=== PATIENT | female | born 1955 | race Asian ===

== ENCOUNTER 2017-02-21 07:26 | Day surgery (SDC) | payer BC ==
[2017-02-13 15:25] VITALS: BMI 25.2
[2017-02-21] MEDS ORDERED: PROPOFOL 20 ML ONE ×2 (07:29)
[2017-02-21] MEDS ORDERED: LIDOCAINE HCL/PF 2% SDV 5ML VIAL ONE (07:47)
[2017-02-21 08:57] VITALS: TEMP 97.6
[2017-02-21 09:24] VITALS: BP 109/71; PULSE 74
== END 2017-02-21 09:45 | disposition home or self-care (01) ==
LOC: FASU-ENDO 07:26
PROVIDERS: ATTEND Internal Medicine Gastroenterology
PROC: 0DJD8ZZ Inspection of Lower Intestinal Tract, Via Natural or Artificial Opening Endoscopic (ICD-10-PCS; principal; 2017-02-21 08:23)
DX: Z86.010 Personal history of colon polyps (principal)

== ENCOUNTER 2017-07-31 02:15 | Emergency (ER) | payer BC ==
[2017-07-31 02:25] VITALS: BP 113/56; PULSE 63; BMI 26.4
[2017-07-31] MEDS ORDERED: SODIUM CHLORIDE 1,000 ML IV STA (02:27)
[2017-07-31] MEDS ORDERED: ONDANSETRON 4 MG/2 ML VIAL IVPB ONE (02:27)
--- NOTE | 2017-07-31 02:33 | PDOC ---
History of Present Illness - General Chief Complaint: Nausea/Vomiting Stated Complaint: VOMITED X 3, NAUSEA Time Seen by Provider: 07/31/17 02:17 - History of Present Illness Initial Comments: 07/31/17 02:30 61 F with h/o HTN presenting to ER with N+V. Pt states that about 4 hours prior to arrival to ER, she started feeling extremely nauseous. Pt reports vomiting x 3, nonbloody. Pt also endorses having a large bowel movement but denies any diarrhea. Pt denies F/C. Denies CP/SOB. She states that since she arrived to the ED, she feels significantly better. Denies any abdominal pain. Denies dysuria. Past History - Past Medical History Allergies/Adverse Reactions: Allergies Allergy/AdvReac Type Severity Reaction Status Date / Time aspirin Allergy BLEEDING Verified 07/31/17 02:18 latex Allergy Rash Verified 07/31/17 02:18 Penicillins Allergy Hives Verified 07/31/17 02:18 Home Medications: Ambulatory Orders Lisinopril 10 mg PO HS 02/13/17 Multivitamin [One Daily] 1 each PO DAILY 02/13/17 Anemia: Yes Asthma: No Cancer: No Cardiac Disorders: No CVA: No COPD: No CHF: No Dementia: No Diabetes: No GI Disorders: No Disorders: No HTN: Yes Hypercholesterolemia: Yes (BOARDERLINE STATED BY PT) Liver Disease: No Seizures: No Thyroid Disease: No - Surgical History Abdominal Surgery: No Appendectomy: No Cardiac Surgery: No Cholecystectomy: No Lung Surgery: No Neurologic Surgery: No Orthopedic Surgery: No - Suicide/Smoking/Psychosocial Hx Smoking History: Never smoked Have you smoked in the past 12 months: No Information on smoking cessation initiated: No Hx Alcohol Use: No Drug/Substance Use Hx: No Substance Use Type: None Hx Substance Use Treatment: No Review of Systems - Review of Systems Comments:: 07/31/17 02:31 "GENERAL/CONSTITUTIONAL: No fever or chills. No weakness. HEAD, EYES, EARS, NOSE AND THROAT: No change in vision. No ear pain or discharge. No sore throat. CARDIOVASCULAR: No chest pain or shortness of breath. RESPIRATORY: No cough, wheezing, or hemoptysis. GASTROINTESTINAL: + nausea, vomiting, no diarrhea or constipation. GENITOURINARY: No dysuria, frequency, or change in urination. MUSCULOSKELETAL: No joint or muscle swelling or pain. No neck or back pain. SKIN: No rash NEUROLOGIC: No headache, vertigo, loss of consciousness, or change in strength/ sensation. ENDOCRINE: No increased thirst. No abnormal weight change. HEMATOLOGIC/LYMPHATIC: No anemia, easy bleeding, or history of blood clots. ALLERGIC/IMMUNOLOGIC: No hives or skin allergy. " *Physical Exam - Vital Signs Last Vital Signs Temp Pulse Resp BP Pulse Ox 63 16 113/56 100 07/31/17 02:20 07/31/17 02:20 07/31/17 02:20 07/31/17 02:20 - Physical Exam Comments: 07/31/17 02:32 "GENERAL: Awake, alert, and fully oriented, in no acute distress HEAD: No signs of trauma EYES: PERRLA, EOMI, sclera anicteric, conjunctiva clear ENT: Auricles normal inspection, hearing grossly normal, nares patent, oropharynx clear without exudates. Moist mucosa NECK: Nontender, no stepoffs, Normal ROM, supple, no lymphadenopathy, JVD, or masses LUNGS: Breath sounds equal, clear to auscultation bilaterally. No wheezes, and no crackles HEART: Regular rate and rhythm, normal S1 and S2, no murmurs, rubs or gallops ABDOMEN: Soft, nontender, normoactive bowel sounds. No guarding, no rebound. No masses EXTREMITIES: Normal range of motion, no edema. No clubbing or cyanosis. No cords, erythema, or tenderness NEUROLOGICAL: Cranial nerves II through XII intact. 5/5 strength and sensation in all extremities, Normal speech, normal gait SKIN: Warm, Dry, normal turgor, no rashes or lesions noted. " Heart Score/ECG Review - History History: Slightly suspicious - Electrocardiogram EKG: Non specific repolarization disturbance - Age Age: 45-65 - Risk Factors Risk Factors Heart Score: Yes Hx Hypertension Based on the list above the patient has:: 1-2 risk factors - Troponin Troponin: </= normal limit - Score Heart Score - Total: 3 - ECG Impressions Comment:: 07/31/17 03:33 NSR, no KIM/STDs, TWI in V1-V2, axis wnl, NE 206, rate 73 ED Treatment Course - LABORATORY CBC & Chemistry Diagram: 07/31/17 02:30 07/31/17 02:30 Medical Decision Making - Medical Decision Making 07/31/17 02:32 62 F with N+V. Likely gastroenteritis. Pt with benign abdomen at this time, making acute intraabdominal pathology less likely. Also consider anginal equivalent. - Labs, trop - EKG - IVF, zofran - Reassess 07/31/17 03:48 Labs wnl. Trop negative. EKG nonischemic. Pt reassessed s/p IVF and zofran, now feels much better. Pt tolerating PO. Abdomen continues to be benign. Trop negative x1 - given onset of symptoms 4 hours prior to arrival, repeat trop not necessary. Pt well appearing with normal vitals, clinically stable for DC. I discussed the physical exam findings, ancillary test results and final diagnoses with the patient. I answered all of the patient's questions. The patient was satisfied with the care received and felt comfortable with the discharge plan and treatment plan. The patient agrees to follow up with the primary care physician within 24-72 hours. *DC/Admit/Observation/Transfer Diagnosis at time of Disposition: Gastroenteritis - Discharge Dispostion Disposition: HOME Condition at time of disposition: Stable - Referrals Referrals: Juan Antonio Valenzuela MD [Primary Care Provider] - - Patient Instructions Printed Discharge Instructions: DI for Viral Gastroenteritis -- Adult Additional Instructions: Drink plenty of fluids to stay hydrated. Call your primary care doctor tomorrow to arrange a follow up appointment within 1 week. If you experience any further nausea, vomiting, chest pain, shortness of breath , or any other concerning symptoms, return to the ER immediately. - Post Discharge Activity - Attestations Physician Attestion: 07/31/17 03:50 I, Dr. John Milligan MD, attest that this document has been prepared under my direction and personally reviewed by me in its entirety. I further attest, that it accurately reflects all work, treatment, procedures and medical decision -making performed by me.
[2017-07-31] MEDS ORDERED: ONDANSETRON 4 MG/2 ML VIAL ONE (02:36)
[2017-07-31 02:42] VITALS: TEMP 97.3
[2017-07-31 02:57] LABS: BASO % 0.8 % (0-2.0); EOS % 6.6 % (0-4.5); HEMATOCRIT 36.4 % (32.4-45.2); HEMOGLOBIN 12.2 GM/dL (10.7-15.3); LYMPH % 26.8 % (8-40); MCH 31.9 pg (25.7-33.7); MCHC 33.4 g/dl (32.0-36.0); MEAN CELL VOLUME 95.3 fl (80-96); MEAN PLT VOLUME 7.8 fl (7.5-11.1); MONO % 5.4 % (3.8-10.2); NEUT % 60.4 % (42.8-82.8); PLATELET COUNT 244 K/MM3 (134-434); RBC 3.82 M/mm3 (3.60-5.2); RDW 13.1 % (11.6-15.6); WHITE BLOOD COUNT 6.8 K/mm3 (4.0-10.0)
[2017-07-31 03:38] LABS: ALBUMIN 4.1 g/dl (3.4-5.0); ANION GAP 7 (8-16); BILIRUBIN,TOTAL 0.3 mg/dL (0.2-1.0); BLOOD UREA NITROGEN 14 mg/dL (7-18); CALCIUM 8.6 mg/dL (8.5-10.1); CHLORIDE 106 mmol/L (98-107); CO2 29 mmol/L (21-32); CREATININE 0.7 mg/dL (0.55-1.02); GLUCOSE,RANDOM 118 mg/dL (74-106); LIPASE 130 U/L (73-393); POTASSIUM 3.6 mmol/L (3.5-5.1); SGOT/AST 15 U/L (15-37); SGPT/ALT 26 U/L (12-78); SODIUM 142 mmol/L (136-145)
[2017-07-31 03:39] LABS: ALK PHOS 59 U/L (45-117)
--- NOTE | 2017-08-01 10:53 | EKG ---
Test Reason : Blood Pressure : / mmHG Vent. Rate : 073 BPM Atrial Rate : 073 BPM P-R Int : 206 ms QRS Dur : 070 ms QT Int : 424 ms P-R-T Axes : 033 026 048 degrees QTc Int : 467 ms NORMAL SINUS RHYTHM NORMAL ECG NO PREVIOUS ECGS AVAILABLE Confirmed by DORIE LAIRD MD ([id number]) on 08/01/2017 10:53:03 AM Referred By: MD GOLD Confirmed By:DORIE LAIRD MD
== END 2017-07-31 03:55 | disposition home or self-care (01) ==
LOC: FER 02:15
PROC: 3E033GC Introduction of Other Therapeutic Substance into Peripheral Vein, Percutaneous Approach (ICD-10-PCS; principal; 2017-07-31)
PROC: 3E0337Z Introduction of Electrolytic and Water Balance Substance into Peripheral Vein, Percutaneous Approach (ICD-10-PCS; 2017-07-31)
DX: K52.9 Noninfective gastroenteritis and colitis, unspecified (principal); I10 Essential (primary) hypertension
CPT/HCPCS: 36415; 80053; 82550; 83690; 84484; 85025; 93005; 99281-25

== ENCOUNTER 2018-12-27 08:45 | Emergency (ER) | payer BC ==
[2018-12-27 09:01] VITALS: BP 133/79; PULSE 59; TEMP 97.6; BMI 26.1
--- NOTE | 2018-12-27 09:10 | PDOC ---
History of Present Illness - General Chief Complaint: Nausea/Vomiting Stated Complaint: FEELS BETTER, VOMITED Time Seen by Provider: 12/27/18 08:55 - History of Present Illness Initial Comments: 12/27/18 09:22 Chief complaint: Dizziness and nausea History of present illness: Patient awoke this morning, and upon arising felt "dizziness" accompanied by nausea. There were several episodes of retching with vomiting of a small amount of watery fluid. No abdominal pain or diarrhea. Normal bowel movement yesterday. The "dizziness" is not described as a spinning sensation, but it is made worse with head movement and change of position Review of systems: Denies fevers/chills, URI symptoms, sore throat, cough, chest pain, shortness of breath, abdominal pain, hematemesis, melena, bloody stool, urinary symptoms such as dysuria, frequency, urgency, hesitancy, or hematuria, vaginal bleeding or discharge, visual or focal neurologic symptoms, unsteadiness of gait. Past medical history: Mild hypertension controlled on diuretic. section 3, only surgeries. "Borderline" diabetes on no therapy, with A1c in the high-fives. Similar illness approximately one year ago, evaluated with workup in emergency room which was negative. Complete resolution with time. 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 No tobacco alcohol or nonprescription drugs. No anxiety or depression Family history: Father with a stroke in his 70s, sister with breast cancer. Physical exam: Alert and oriented well-developed well-nourished no acute distress cooperative Afebrile, vital signs normal No pallor or icterus. PERRLA 4 mm, fundi benign with sharp disc margins and good central venous pulsations, no hemorrhages or exudates, no AV nicking. ENT clear Neck supple without bruit mass or nodes Chest clear to P&A. Breasts sounds bilaterally CV S1-S2 normal without murmur rub or gallop pulses full and symmetric no JVD or edema no bruits 60 and regular Abdomen nondistended. Bowel sounds normal. Soft without masses tenderness organomegaly Skin clear, no rash, adequate turgor and mucous membranes Extremities no CCE Neurological C2 to 12 intact. Strength full and symmetric. No focal sensory or motor deficits. Gait stable and unimpaired. Cerebellar function intact. There is reproduction of dizziness with head movement, and with sitting up from a lying position. There is no nystagmus. Impression: This is most likely an acute viral syndrome, with labyrinthine irritation, and vertigo/nausea. No sign of TIA or CVA. But this is still a remote possibility. Also possible but unlikely as an acute coronary syndrome Plan: EKG and enzymes, CBC, chemistries, symptomatic treatment, observation and further evaluation. Past History - Past Medical History Allergies/Adverse Reactions: Allergies Allergy/AdvReac Type Severity Reaction Status Date / Time aspirin Allergy BLEEDING Verified 12/27/18 08:46 latex Allergy Rash Verified 12/27/18 08:46 Penicillins Allergy Hives Verified 12/27/18 08:46 Home Medications: Ambulatory Orders Losartan Potassium 25 mg PO DAILY 12/27/18 Meclizine HCl [Antivert -] 25 mg PO TID PRN #15 tablet 12/27/18 Ondansetron [Zofran Odt -] 4 mg SL TID PRN #15 od.tablet 12/27/18 Anemia: Yes Asthma: No Cancer: No Cardiac Disorders: No CVA: No COPD: No CHF: No Dementia: No Diabetes: No GI Disorders: No Disorders: No HTN: Yes Hypercholesterolemia: Yes (BOARDERLINE STATED BY PT) Liver Disease: No Seizures: No Thyroid Disease: No - Surgical History Abdominal Surgery: No Appendectomy: No Cardiac Surgery: No Cholecystectomy: No Lung Surgery: No Neurologic Surgery: No Orthopedic Surgery: No - Suicide/Smoking/Psychosocial Hx Smoking History: Never smoked Have you smoked in the past 12 months: No Information on smoking cessation initiated: No Hx Alcohol Use: No Drug/Substance Use Hx: No Substance Use Type: None Hx Substance Use Treatment: No *Physical Exam - Vital Signs Last Vital Signs Temp Pulse Resp BP Pulse Ox 97.6 F 59 L 20 133/79 100 12/27/18 08:46 12/27/18 08:46 12/27/18 08:46 12/27/18 08:46 12/27/18 08:46 ED Treatment Course - LABORATORY CBC & Chemistry Diagram: 12/27/18 09:28 12/27/18 09:28 Medical Decision Making - Medical Decision Making 12/27/18 10:35 Patient is much improved with the administration of Zofran and meclizine. Dizziness and nausea are completely resolved. CBC, chemistries, cardiac enzymes are normal EKG reveals sinus bradycardia with first-degree AV block. Nonspecific ST-T wave changes and first-degree AV block are similar to those appearing on a cardiogram dated 07/31/2017. However, the heart rate was 73. 12/27/18 10:58 Heart rate is now 67. Bradycardia may have been from excessive vagal stimulation. This was discussed with the patient. 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 Cardiology consultation is recommended if there is recurrent bradycardia. She and her daughter understand and agree. *DC/Admit/Observation/Transfer Diagnosis at time of Disposition: Acute viral labyrinthitis Qualifiers: Laterality: unspecified laterality Qualified Code(s): H83.09 - Labyrinthitis, unspecified ear - Discharge Dispostion Disposition: HOME Condition at time of disposition: Improved Decision to Admit order: No - Prescriptions Prescriptions: Meclizine HCl [Antivert -] 25 mg PO TID PRN #15 tablet PRN Reason: vertigo/dizziness Ondansetron [Zofran Odt -] 4 mg SL TID PRN #15 od.tablet PRN Reason: Nausea And/Or Vomiting - Referrals - Patient Instructions Printed Discharge Instructions: DI for Vertigo, DI for Nausea -- Adult Additional Instructions: Rest. Medication as directed as needed. Symptoms should slowly resolve after the course of a few days. If symptoms worsen, or other symptoms develop, return to the emergency room immediately. Otherwise follow-up primary physician 2-3 days. - Post Discharge Activity
[2018-12-27] MEDS ORDERED: SODIUM CHLORIDE 500 ML IV STA (09:11)
[2018-12-27] MEDS ORDERED: ONDANSETRON 4 MG/2 ML VIAL IVPB ONE (09:12)
[2018-12-27] MEDS ORDERED: MECLIZINE HCL 25 MG TABLET (FP) PO ONE (09:12)
[2018-12-27] MEDS ORDERED: MECLIZINE HCL 25 MG TABLET (FP) ONE (09:19)
[2018-12-27] MEDS ORDERED: ONDANSETRON 4 MG/2 ML VIAL ONE (09:19)
--- NOTE | 2018-12-27 09:31 | EKG ---
Test Reason : Blood Pressure : / mmHG Vent. Rate : 054 BPM Atrial Rate : 054 BPM P-R Int : 226 ms QRS Dur : 076 ms QT Int : 456 ms P-R-T Axes : 049 020 039 degrees QTc Int : 432 ms SINUS BRADYCARDIA WITH 1ST DEGREE A-V BLOCK NONSPECIFIC T WAVE ABNORMALITY ABNORMAL ECG WHEN COMPARED WITH ECG OF 31-JUL-2017 02:50, NO SIGNIFICANT CHANGE WAS FOUND Confirmed by MARISA ROMO, JEANNA ([id number]) on 12/27/2018 9:31:12 AM Referred By: MANNY VASQUEZ Confirmed By:JEANNA CUNNINGHAM MD
[2018-12-27 09:43] LABS: EOS % 4.6 % (0-4.5); HEMATOCRIT 36.8 % (32.4-45.2); HEMOGLOBIN 12.2 GM/dl (10.7-15.3); LYMPH % 27.3 % (8-40); MCH 31.9 pg (25.7-33.7); MCHC 33.1 g/dl (32.0-36.0); MEAN CELL VOLUME 96.5 fl (80-96); MEAN PLT VOLUME 7.5 fl (7.5-11.1); MONO % 4.2 % (3.8-10.2); NEUT % 62.9 % (42.8-82.8); PLATELET COUNT 263 K/MM3 (134-434); RBC 3.81 M/mm3 (3.60-5.2); RDW 12.2 % (11.6-15.6); WHITE BLOOD COUNT 4.1 K/mm3 (4.0-10.8)
[2018-12-27 09:51] LABS: ALBUMIN 3.9 g/dl (3.4-5.0); BILIRUBIN,TOTAL 0.8 mg/dl (0.2-1); CREATININE 0.6 mg/dl (0.55-1.3); POTASSIUM 3.7 mmol/L (3.5-5.1); TOT PROT 6.5 g/dl (6.4-8.2)
== END 2018-12-27 11:04 | disposition home or self-care (01) ==
LOC: FER 08:45
PROC: 3E033GC Introduction of Other Therapeutic Substance into Peripheral Vein, Percutaneous Approach (ICD-10-PCS; principal; 2018-12-27)
PROC: 3E0337Z Introduction of Electrolytic and Water Balance Substance into Peripheral Vein, Percutaneous Approach (ICD-10-PCS; 2018-12-27)
DX: H83.09 Labyrinthitis, unspecified ear (principal)
CPT/HCPCS: 36415; 80053; 81003; 81015; 82550; 84484; 85025; 93005; 99283-25

== ENCOUNTER 2022-12-05 08:06 | Day surgery (SDC) | payer BC ==
[2022-11-30 15:53] VITALS: BMI 28.4
[2022-12-05 08:36] VITALS: RESP 18; TEMP 97
[2022-12-05 10:02] VITALS: BP 110/61; PULSE 69
== END 2022-12-05 10:05 | disposition home or self-care (01) ==
LOC: FASU-ENDO 08:06
PROVIDERS: ATTEND Internal Medicine Gastroenterology
PROC: 0DBL8ZX Excision of Transverse Colon, Via Natural or Artificial Opening Endoscopic, Diagnostic (ICD-10-PCS; 2022-12-05)
PROC: 0DBK8ZX Excision of Ascending Colon, Via Natural or Artificial Opening Endoscopic, Diagnostic (ICD-10-PCS; principal; 2022-12-05 09:07)
DX: Z12.11 Encounter for screening for malignant neoplasm of colon (principal); D12.2 Benign neoplasm of ascending colon; K63.5 Polyp of colon; Z86.010 Personal history of colon polyps
CPT/HCPCS: 88305-TC